=== PATIENT | male | born 1950 | race Caucasian/White ===

== ENCOUNTER 2016-10-29 15:14 | Emergency (ER) | payer MEDICARE ==
[2016-10-29 15:30] VITALS: BP 133/94
--- NOTE | 2016-10-29 16:49 | UC ---
Skin Complaint HPI - HPI Summary HPI Summary: This is a 66 yo gentleman with OA of his L hip who presents with c/o rash. He reports that he used a kinesiology tape on his L hip yesterday and was awoken in the middle of the night with a painful rash. He is unsure if the lesion that developed is over the exact area that the tape was in place. He went cycling yesterday and today with the tape in place. He denies a h/o similar reaction. No associated fever or generalized illness. - History of Current Complaint Chief Complaint: UCSkin Stated Complaint: RASH - Allergy/Home Medications Allergies/Adverse Reactions: Allergies Allergy/AdvReac Type Severity Reaction Status Date / Time Apple Allergy Unknown Verified 10/18/14 10:48 Reaction Details Review of Systems Constitutional: Negative Skin: Rash Eyes: Negative ENT: Negative Respiratory: Negative Cardiovascular: Negative Gastrointestinal: Negative Genitourinary: Negative Motor: Negative Neurovascular: Negative Musculoskeletal: Negative Neurological: Negative Psychological: Negative All Other Systems Reviewed And Are Negative: Yes PMH/Surg Hx/FS Hx/Imm Hx Previously Healthy: No - L hip OA - Surgical History Surgical History: Yes Surgery Procedure, Year, and Place: RT HIP REPLACEMENT - Family History Known Family History: Positive: None - Social History Alcohol Use: Weekly Alcohol Amount: 2 GLASSES WEEKLY Substance Use Type: None Smoking Status (MU): Never Smoked Tobacco Physical Exam Triage Information Reviewed: Yes Vital Signs: Initial Vital Signs Temp 98 F 10/29/16 15:27 Pulse 81 10/29/16 15:27 Resp 20 10/29/16 15:27 BP 133/94 10/29/16 15:27 Pulse Ox 99 10/29/16 15:27 Vital Signs Reviewed: Yes Respiratory: Positive: Chest non-tender, Lungs clear Cardiovascular: Positive: RRR, No Murmur Skin: Positive: Other - focal lesion just inferior to the GT, no surrounding erythema, superficial layer of skin appears to be sheared off Course/Dx - Course Course Of Treatment: This is a 66 yo gentleman presenting with c/o painful rash. It appears to be a shear injury, perhaps from the tape. Recommended to keep the area covered to prevent infection and inspect daily to look for new lesions or signs of infection - Diagnoses Provider Diagnoses: 1. Rash Discharge - Discharge Plan Condition: Stable Disposition: HOME Patient Education Materials: Acute Rash (ED) Referrals: David Hammer MD [Primary Care Provider] - If Needed Additional Instructions: Activity: As tolerated Instructions: 1. Keep the area covered to prevent infection, but inspect daily 2. Follow up if there is increased pain, redness or swelling or if new lesions develop
== END 2016-10-29 16:45 | disposition home or self-care (01) ==
LOC: UCEAST 15:14
DX: R21 Rash and other nonspecific skin eruption (principal)
CPT/HCPCS: 99211; G0463

== ENCOUNTER 2017-02-02 07:51 | Inpatient (IN) | payer MEDICARE ==
--- NOTE | 2017-01-23 19:54 | HP ---
PREOPERATIVE HISTORY AND PHYSICAL: DATE OF ADMISSION: 02/02/17 PROVIDER: Dr. Imer Burns * (DICTATED BY TRUDY SPARKS) CHIEF COMPLAINT: Left hip pain. HISTORY OF PRESENT ILLNESS: Mr. Oviedo is a 66-year-old male, who has had ongoing pain in the left hip. He underwent a right total hip arthroplasty in September of 2010 and is doing very well with that. He is interested in surgical intervention for the pain in the left hip at this point. He takes pain medication at night to help him sleep. He also has increased pain when going from sitting to standing position. He has failed conservative treatment at this point. PAST MEDICAL HISTORY: Significant BPH, bradycardia, obstructive sleep apnea. PAST SURGICAL HISTORY: Right total hip replacement in 2010, right knee arthroscopy and partial meniscectomy in 2015, left carpal tunnel release in 2014. He reports no complications with anesthesia with these procedures. CURRENT MEDICATIONS: 1. Mobic 15 mg 1 p.o. q. day. 2. Avodart 0.5 mg 1 p.o. q. day. 3. Minocycline 50 mg 1 p.o. q. day. 4. Tamsulosin HCl 0.4 mg 1 p.o. q. day. 5. Viagra 50 mg 1 by mouth q. day as needed. 6. Ibuprofen 200 mg 2 tabs p.o. b.i.d. as needed. 7. CPAP for sleeping. ALLERGIES: No known drug allergies. FAMILY HISTORY: Noncontributory. SOCIAL HISTORY: He lives with his . He is a retired. He does not use tobacco. He drinks 1 to 2 alcoholic beverages per week. He exercises regularly. REVIEW OF SYSTEMS: Constitutional: Negative for recent hospitalizations, fevers, chills, night sweats, or unexplained weight loss. Head: Negative for headaches, lightheadedness, or balance problems. Cardiovascular: Negative for chest or arm pain with exertion, history of heart attack, heart murmur, heart palpitations, high blood pressure, embolism, or deep vein thrombosis. Respiratory: Negative for chronic cough, shortness of breath with exertion, asthma, or COPD. Gastrointestinal: Negative for heartburn, nausea, vomiting, diarrhea, constipation, or GERD. Genitourinary: Positive for nighttime urination, urinary frequency, positive for BPH, negative for urinary tract infections or kidney problems. Musculoskeletal: Negative for chronic back pain or recent fractures. Skin: Negative for rashes, lesions, lumps, or sores. Neurologic: Negative for seizure, stroke, epilepsy, depression or anxiety. Endocrine: Negative for diabetes or thyroid problems. Hematology: Negative for easy bleeding, bruising, or anemia. PHYSICAL EXAMINATION GENERAL: He is a well-developed, well-nourished male, in no acute distress at rest. He is alert and oriented x3 with appropriate mood and affect. VITAL SIGNS: The patient is 5 feet 10 inches, 250 pounds, blood pressure 140/84 , pulse 76. HEENT: Normocephalic, atraumatic. Hearing and vision are grossly intact. NECK: His trachea is midline. RESPIRATORY: Lungs are clear to auscultation bilaterally. No wheezes, rales, or rhonchi. CARDIOVASCULAR: Regular rate and rhythm. No murmurs, rubs, or gallops. Normal S1 and S2. ABDOMEN: Soft, nondistended, nontender, normal bowel sounds. EXTREMITIES: Exam of the hip, skin is intact without abrasions or open wounds. There is no edema or ecchymosis or gross deformities. He has significantly resisted range of motion of the hip and pain with end range of motion. He has good strength in all directions. He has sensation to light touch intact distally. He has a normal vascular exam. DIAGNOSTIC STUDIES: Imaging: Bilateral hip x-rays showed good right total hip arthroplasty and [id number] osteoarthritis of the left hip. IMPRESSION: Left hip osteoarthritis. PLAN: The patient is to undergo left total hip arthroplasty by Dr. Burns on 02/02/17. The risks, benefits, and postoperative course were discussed with the patient at length and he would like to proceed. A prescription for Percocet was sent to his pharmacy for postoperative pain and Coumadin was also sent for DVT prophylaxis. We will follow up with the patient in the postoperative phase. TRUDY SPARKS [id number]/CPS #: [id number] MTDD
[~2017-02-02 07:51] MED LIST: Buffered Lidocaine 0.9% SYRIN* 5 ML/SYR SYRINGE INTRADERM ONE; Bupivacaine 0.5% SDV PF* 30 ML VIAL ONE; Dexamethasone IV* 4 MG/ML 1 ML (4 MG) ONE; Famotidine IV* 10 MG/ML 2 ML (20 mg) IV ONE; KETAMINE HCL* 50 MG/ML 10 ML VIAL ONE; Ketorolac INJ* 30 MG/ML 1 ML VIAL ONE; Lidocaine 2% PF * 5 ML VIAL ONE; Metoclopramide TAB* 10 MG PO ONE; Midazolam* 1 MG/ML 5 ML VIAL (5 MG) ONE; Morphine PF AMP (0.5MG/ML)* 5 MG/10 ML AMP ONE; Ondansetron INJ* 2 MG/ML VIAL ONE; Propofol* 10 MG/ML 20 ML BTL IV PUSH ONE; Propofol* 500 MG/50 ML BTL ONE; fentaNYL* 50 MCG/ML 2 ML VIAL (100 MCG VIAL) ONE
[2017-02-02] MEDS ORDERED: ceFAZolin 2 GM PREMIX (*) 2 GM/50 ML BAG IVPB ONE (07:58)
[2017-02-02] MEDS ORDERED: Famotidine IV* 10 MG/ML 2 ML (20 mg) ONE (07:58)
[2017-02-02] MEDS ORDERED: Buffered Lidocaine 0.9% SYRIN* 5 ML/SYR SYRINGE ONE (07:58)
[2017-02-02] MEDS ORDERED: Metoclopramide TAB* 10 MG ONE (08:15)
[2017-02-02] MEDS ORDERED: Tamsulosin CAP* 0.4 MG ONE (08:35)
[2017-02-02] MEDS ORDERED: Finasteride TAB* 5 MG PO ONE (09:00)
[2017-02-02] MEDS ORDERED: Tamsulosin CAP* 0.4 MG PO ONE (09:00)
[2017-02-02] MEDS ORDERED: Midazolam* 1 MG/ML 2 ML VIAL (2 MG) ONE (09:19)
[2017-02-02] MEDS ORDERED: Lidocaine 2% PF * 5 ML VIAL ONE (09:20)
[2017-02-02] MEDS ORDERED: diPHENhydraMINE IV* 50 MG/ML 1 ml VIAL (BENADRYL) IV PRN ×2 (10:44→10:48)
[2017-02-02] MEDS ORDERED: Ondansetron INJ* 2 MG/ML VIAL IV PRN ×2 (10:44→10:48)
[2017-02-02] MEDS ORDERED: fentaNYL* 50 MCG/ML 2 ML VIAL (100 MCG VIAL) IV PRN (10:44)
[2017-02-02] MEDS ORDERED: oxyCODONE/Acetamin 5/325 MG* TAB PO PRN ×2 (10:48)
[2017-02-02] MEDS ORDERED: Naloxone* 0.4 MG/ML 1 ML VIAL IV PRN (10:48)
[2017-02-02] MEDS ORDERED: Ketorolac INJ* 30 MG/ML 1 ML VIAL IV PRN (10:48)
[2017-02-02] MEDS ORDERED: diPHENhydraMINE IV* 50 MG/ML 1 ml VIAL (BENADRYL) ONE (11:00)
[2017-02-02] MEDS ORDERED: Polyethylene Glycol 3350* 17 GM PACKET PO PRN (11:44)
[2017-02-02] MEDS ORDERED: Acetaminophen TAB* 325 MG PO PRN (11:44)
[2017-02-02] MEDS ORDERED: Bisacodyl SUPP* 10 MG SUPP PR PRN (11:44)
--- NOTE | 2017-02-02 12:53 | RAD ---
Indication: Left total hip arthroplasty. Single low AP view of the pelvis demonstrates bilateral hip replacements. No fracture is noted. No other bone or joint abnormality is identified. IMPRESSION: No fracture of the pelvis is noted.
[2017-02-02] MEDS ORDERED: Heparin VIAL(*) 5000 UNITS/ML VIAL (FIVE THOUSAND) SUBCUT SCH (14:00)
[2017-02-02] MEDS: D5W 1/2 NS 1000 ML BAG* 1,000 ML IV SCH (15:30)
[2017-02-02] MEDS ORDERED: Warfarin TAB(*) 10 MG PO ONE (17:00)
[2017-02-02] MEDS: ceFAZolin 1 GM VIAL(*) 1 GM in NS 0.9% 50 ML* 50 ML IVPB SCH (17:43)
[2017-02-02] MEDS ORDERED: diPHENhydraMINE IV* 50 MG/ML 1 ml VIAL (BENADRYL) IV ONE (17:55)
[2017-02-02] MEDS ORDERED: Nalbuphine* 20 MG/ML 1 ML VIAL IV PRN (19:00)
[2017-02-02] MEDS: Docusate CAP* 100 MG PO SCH (21:30)
[2017-02-02] MEDS: Ferrous Sulfate TAB* 325 MG PO SCH (21:30)
[2017-02-02] MEDS: Tamsulosin CAP* 0.4 MG PO SCH (21:31)
[2017-02-02] MEDS: Magnesium Hydroxide LIQ* 30 ML UDC PO SCH (21:31)
[2017-02-03] MEDS: D5W 1/2 NS 1000 ML BAG* 1,000 ML IV SCH (01:38)
[2017-02-03] MEDS: ceFAZolin 1 GM VIAL(*) 1 GM in NS 0.9% 50 ML* 50 ML IVPB SCH ×2 (01:39→10:29)
--- NOTE | 2017-02-03 02:28 | OP ---
OPERATIVE REPORT: DATE OF OPERATION: 02/02/17 - Inpatient, room [facility]-02 DATE OF : 50 ATTENDING SURGEON: Imer Burns MD SECRET SERVICE AGENT: TRUDY Denton ANESTHESIOLOGIST: Molina Marques MD ANESTHESIA: Spinal sedation. PRE-OP DIAGNOSIS: Osteoarthritis, left hip. POST-OP DIAGNOSIS: Osteoarthritis, left hip. OPERATIVE PROCEDURE: Left total hip arthroplasty. ESTIMATED BLOOD LOSS: 250 cc. COMPLICATIONS: None. HARDWARE: Bobbi Continuum cup 54 mm with 2 screws, 15-degree elevated liner, 13.5 mL taper, +0 36 mm head. SUMMARY: Mr. Oviedo is a 66-year-old male who has been having more troubles now with his left hip. He had undergone a right total hip arthroplasty in 2010 and had done quite well with that. His left hip had only been a little bit bothersome at that point, but had slowly gotten worse over the years. He reports this is a point where he needs to have his left hip replaced. X-ray was completely cyqz-[id number] with significant osteoarthritis and bony changes. I discussed with him that a total hip arthroplasty should work well to decrease his pain and improve his function. Risks of surgery such as infection, scar formation, stiffness, DVT, pulmonary embolism, hardware failure, instability, and leg length discrepancy were some of the risks discussed. He had been declared medically optimized and wished to proceed. DESCRIPTION OF PROCEDURE: The patient was brought to the OR and spinal anesthesia was introduced. Bo catheter was placed and that went smoothly. He was then rolled into the right lateral decubitus position and an axillary role was placed. The left hip area was prepped and then draped. Incision was made centered about the greater trochanter extending proximally and distally for about 8 cm. Incision was carried down through the skin and subcutaneous fat , fascia was exposed and sharply incised. Marichuy Kc was present from positioning to draping to the approach, placement of the hardware as well as closure and the case could not have been done without an mail handler assistant. We had quite a bit of muscle under the fascia and electrocautery was used to ligate some of the small bleeders that were present. He also oozed quite a bit. With blunt dissection, I was able to come under the gluteus medius, gluteus minimus and with coming upwards, nice exposure of the piriformis and short external rotators were obtained. Taking them down using electrocautery, I was able to come to neck and nicely exposed the neck of the femur. With trying to dislocate him; however, he did not come out easily. I had to take a little more capsule over the top superiorly and then a little bit more inferiorly in order that I could release him and then I had troubles tearing his ligamentum teres. Eventually though, hip was dislocated and cutting guide was placed. Femoral neck was marked and a nice femoral neck cut was taken. Femur was then shifted anteriorly and good exposure of the acetabulum was obtained. Arian was used to hang out to some of the frayed labrum, which was present and labrum was sharply excised. He had much more of an osteophyte present, then what the x -ray showed, but initially I had thought that this would be alright, but eventually I did take this down using osteotome and rongeur. Beginning with a 48 reamer, he was first deepened a little bit and then progressively expanded. He had a 54 cup on the opposite side and a 53 had a nice hmvt-ol-frbr bite and a 54 cup was then impacted into place. Nice bite was obtained. Two screws were placed and good bite was obtained with each of the screws as well. Trial liner was placed and attention was turned to the femur. Box osteotome was used to open the femoral canal and the canal finder was easily passed. Five broach was first used to lateralize a little bit and then progressively broached the femur. With the 11, I felt I had a little bit more resistance, but even the 12.5 sat down quite nicely. He had a 12.5 on the right side. A 13.5 had an even more solid fit and I stayed at the 13.5. He was trailed with a standard head and neck and his leg length appeared to be equal. He had good stability, but with internal rotation, he started to lever out at about 30 to 45 degrees. Trial instrumentation was removed and elevated. Posterior liner was placed. 13.5 stem was also impacted into place and he was again trialed with a 0 head. With the elevator liner, he had much better stability and only would lever out at about 60 to 75 degrees of internal rotation. Considering his leg length appeared to be equal, +0 36 mm head was then impacted into place. The hip was copiously pulse lavaged. Capsule and short external rotators were repaired together to the posterior aspect of the greater trochanter. Hip was again copiously pulse lavaged. Fascia was repaired using interrupted #1 Vicryl sutures and the subcutaneous sutures were also pulse lavaged. Subcutaneous tissue were approximated with 2-0 Vicryl, skin was closed using kwaku. Sterile dressing and an abduction pillow were applied in the OR. The patient was then rolled on to the hospital bed and was stable on transfer to the recovery room. [id number]/CPS #: [id number] MTDD
[2017-02-03] MEDS ORDERED: Morphine INJ* 10 MG/ML 1 ML CARPUJECT IV PRN (02:48)
[2017-02-03] MEDS ORDERED: Ondansetron TAB* 4 MG PO PRN (02:48)
[2017-02-03] MEDS ORDERED: diPHENhydraMINE IV* 50 MG/ML 1 ml VIAL (BENADRYL) IV PRN (02:48)
[2017-02-03] MEDS ORDERED: oxyCODONE TAB* 5 MG TAB PO PRN (02:48)
[2017-02-03] MEDS ORDERED: Ondansetron INJ* 2 MG/ML VIAL IV PRN (02:48)
[2017-02-03] MEDS: oxyCODONE/Acetamin 5/325 MG* TAB PO PRN ×2 (03:50→19:45)
[2017-02-03 05:04] LABS: Hematocrit 29 % (42-52); Hemoglobin 9.7 g/dl (14.0-18.0)
[2017-02-03 05:21] LABS: Calcium 8.6 mg/dL (8.6-10.3); EGFR Non-African American 85.5 (>60)
[2017-02-03] MEDS: CMC:Minocycline (NF) 50 MG CAP PO SCH (09:03)
[2017-02-03] MEDS: Tamsulosin CAP* 0.4 MG PO SCH ×2 (09:03→20:04)
[2017-02-03] MEDS: Finasteride TAB* 5 MG PO SCH (09:03)
[2017-02-03] MEDS: Magnesium Hydroxide LIQ* 30 ML UDC PO SCH ×2 (09:03→20:04)
[2017-02-03] MEDS: Ferrous Sulfate TAB* 325 MG PO SCH ×2 (09:03→20:04)
[2017-02-03] MEDS: Vitamin THERAPEUTIC TAB PO SCH (09:04)
[2017-02-03] MEDS: Docusate CAP* 100 MG PO SCH ×2 (09:04→20:04)
[2017-02-03] MEDS: Heparin VIAL(*) 5000 UNITS/ML VIAL (FIVE THOUSAND) SUBCUT SCH ×2 (12:44→19:45)
--- NOTE | 2017-02-03 12:57 | PN ---
Progress Note - Progress Note Date of Service: 02/03/17 SOAP: Subjective: Pt comfortably lying in bed. No complaint of pain. Denies CP, SOB, numbness or tingling. Objective: Dressing was saturated and changed. Incision C/D/I. Calves soft, nontender. 2+ DP pulses. Sensation intact to light touch. Vital Signs: Temp Pulse Resp BP Pulse Ox 97.8 F 59 20 110/59 98 02/03/17 07:44 02/03/17 07:44 02/03/17 08:00 02/03/17 07:44 02/03/17 08:00 Laboratory Last Values Hgb 9.7 g/dl (14.0-18.0) L 02/03/17 04:47 Hct 29 % (42-52) L 02/03/17 04:47 INR (Anticoag Therapy) 1.10 (0.89-1.11) 02/03/17 04:47 Sodium 135 mmol/L (133-145) 02/03/17 04:47 Potassium 4.0 mmol/L (3.5-5.0) 02/03/17 04:47 Chloride 103 mmol/L (101-111) 02/03/17 04:47 Carbon Dioxide 29 mmol/L (22-32) 02/03/17 04:47 Anion Gap 3 mmol/L (2-11) 02/03/17 04:47 BUN 16 mg/dL (6-24) 02/03/17 04:47 Creatinine 0.89 mg/dL (0.67-1.17) 02/03/17 04:47 Est GFR ( Amer) 110.0 (>60) 02/03/17 04:47 Est GFR (Non-Af Amer) 85.5 (>60) 02/03/17 04:47 BUN/Creatinine Ratio 18.0 (8-20) 02/03/17 04:47 Glucose 147 mg/dL (70-100) H 02/03/17 04:47 Calcium 8.6 mg/dL (8.6-10.3) 02/03/17 04:47 Assessment: 66 yo male s/p Left CLAUDIA POD #1 Plan: OOB PT/OT WBAT LLE Pain Control DVT prophylaxis - Coumdin 8 mg tonight
[2017-02-03] MEDS ORDERED: Warfarin TAB(*) 4 MG PO ONE (17:00)
[2017-02-03] MEDS: Aspirin TAB* 325 MG PO SCH (18:20)
[2017-02-04] MEDS: oxyCODONE/Acetamin 5/325 MG* TAB PO PRN ×2 (00:19→08:25)
[2017-02-04] MEDS: Heparin VIAL(*) 5000 UNITS/ML VIAL (FIVE THOUSAND) SUBCUT SCH ×2 (03:40→12:22)
[2017-02-04 05:41] LABS: Hematocrit 27 % (42-52); Hemoglobin 9.1 g/dl (14.0-18.0)
[2017-02-04] MEDS: Magnesium Hydroxide LIQ* 30 ML UDC PO SCH (08:25)
[2017-02-04] MEDS: Docusate CAP* 100 MG PO SCH (08:26)
[2017-02-04] MEDS: Aspirin TAB* 325 MG PO SCH (08:26)
[2017-02-04] MEDS: Finasteride TAB* 5 MG PO SCH (08:27)
[2017-02-04] MEDS: Ferrous Sulfate TAB* 325 MG PO SCH (08:28)
[2017-02-04] MEDS: CMC:Minocycline (NF) 50 MG CAP PO SCH (08:28)
[2017-02-04] MEDS: Vitamin THERAPEUTIC TAB PO SCH (08:28)
[2017-02-04] MEDS: Tamsulosin CAP* 0.4 MG PO SCH (08:28)
--- NOTE | 2017-02-04 08:36 | PN ---
Progress Note - Progress Note Date of Service: 02/04/17 SOAP: Subjective: [Pt reports good night, would like to go home today] Objective: [Pt sitting in chair, wasable to stand for his dressing change. VSS: afebrile Labs: H/H: 9.05/09, INR: 1.7] Left hip: Wound benign, no drainage, no erythema, but good amount of ecchymosis extending from superior to the wound to inferior. Also swollen in this area. Assessment: [Stable] Plan: [Continue OOB/PT, DVT prophalaxis, care He has expressed the desire to avoid coumadin and I had told him if he moved well, we could use aspirin instead. He did great with PT and is moving well, so I started him on ASA yesterday. Likely d/c later today.]
[2017-02-04 12:22] VITALS: BP 131/72
--- NOTE | 2017-02-05 00:37 | DS ---
Amended report to enter cosigning physician on report. DISCHARGE SUMMARY: DATE OF ADMISSION: 02/02/17 DATE OF DISCHARGE: 02/04/17 ATTENDING PHYSICIAN: Imer Burns MD* (dictated by TRUDY Strong). ADMISSION DIAGNOSIS: Osteoarthritis, left hip. DISCHARGE DIAGNOSIS: Osteoarthritis, left hip. SURGERY PERFORMED: Left total hip arthroplasty. HOSPITAL COURSE: The patient is a 66-year-old male, who underwent right total hip arthroplasty in 2010 and did very well. He has had increased pain in the left hip and worsened over the last several months and decided to proceed with total hip arthroplasty. He failed conservative management. His x-rays revealed [id number] arthritis. He was taken to the operating room under the care of Dr. Imer Burns on the date of 02/02/17 for the aforementioned procedure. He tolerated the procedure well and left the operating room in stable condition. Postoperatively, he progressed very well with the physical therapy and occupational therapy goals, bearing weight as tolerated on the left lower extremity. He was stable medically and orthopedically for discharge to home on the date of 02/04/17. CONDITION ON DISCHARGE: Temperature 98, pulse 79, respiratory rate 17, O2 sat is 96% on room air, blood pressure 124/68. His hemoglobin is 9.1, hematocrit 27. His wound is healing without evidence of infection. His calf is soft and nontender. His neurovascular status is intact distally. PLAN: Discharged to home bearing weight as tolerated on the left lower extremity. He will use aspirin 325 mg p.o. daily for DVT prophylaxis. He may shower on 02/05/17 with a light dressing to cover the incision as needed. He will follow up in the office as scheduled with Dr. Burns in mid February. Home nursing services will remove kwaku at about 10 to 14 days. If there are any concerns with increased pain, noted redness or drainage from his incision, calf pain or swelling, fever or chills, the office will be contacted prior to a scheduled appointment in February with Dr. Burns. TRUDY STRONG [id number]/[facility] #: [id number] MTDD
== END 2017-02-04 14:10 | disposition home health service (06) | DRG 470 ==
LOC: AA 07:51 → SSU 14:36
PROVIDERS: ADMIT Orthopaedic Surgery; ATTEND Orthopaedic Surgery
PROC: 0SRB02A Replacement of Left Hip Joint with Metal on Polyethylene Synthetic Substitute, Uncemented, Open Approach (ICD-10-PCS; principal; 2017-02-02 09:15)
DX: M16.12 Unilateral primary osteoarthritis, left hip (principal); I27.20 Pulmonary hypertension, unspecified; G47.33 Obstructive sleep apnea (adult) (pediatric); N40.0 Benign prostatic hyperplasia without lower urinary tract symptoms; Z96.641 Presence of right artificial hip joint; J45.909 Unspecified asthma, uncomplicated; I10 Essential (primary) hypertension; Z72.89 Other problems related to lifestyle; Z79.82 Long term (current) use of aspirin
CPT/HCPCS: 36415; 62323; 72170; 80048; 85014; 85018; 85610; 88304; 88311; A9270-GY; C1713; C1776; J0690; J1100; J1200; J1644; J1885; J2250; J2300; J2405; J2704; J3010

== ENCOUNTER 2017-03-01 00:29 | Emergency (ER) | payer MEDICARE ==
[2017-03-01] MEDS ORDERED: Magnesium CITRATE* 300 ML BTL PO ONE (02:21)
--- NOTE | 2017-03-01 02:23 | ED ---
Elieser Kent Alfonso, scribed for David Mabry MD on 03/01/17 at 0203 . GI/ HPI - HPI Summary HPI Summary: This patient is a 66 year old M presenting to [facility] accompanied by female with a chief complaint of constipation and urinary retention since 2300 yesterday. The patient rates the pain 5/10 in severity. Symptoms aggravated and alleviated by nothing. Patient reports back spasms. Patient denies dysuria. He is taking stool softeners and drinking prune juice. - History of Current Complaint Chief Complaint: EDUrogenitalProblems Stated Complaint: CONSTIPATION/DIFF URINATING Hx Obtained From: Patient Onset/Duration: Started Hours Ago, Still Present Timing: Constant Pain Intensity: 5 - /10 Associated Signs and Symptoms: Positive: Other: - back spasms, constipation, and urinary retention. Negative: Dysuria Aggravating Factor(s): Nothing Alleviating Factor(s): Nothing - Additional Pertinent History Primary Care Physician: [id number] - Allergy/Home Medications Allergies/Adverse Reactions: Allergies Allergy/AdvReac Type Severity Reaction Status Date / Time Apple Allergy Severe severe Verified 02/11/17 05:29 diarrhea PMH/Surg Hx/FS Hx/Imm Hx Endocrine/Hematology History: Denies: Hx Diabetes Cardiovascular History: Denies: Hx Congestive Heart Failure, Hx Hypertension, Hx Pacemaker/ICD Respiratory History: Reports: Hx Sleep Apnea Denies: Hx Asthma GI History: Reports: Other GI Disorders - hemorrhoids History: Reports: Other Problems/Disorders - BPH Denies: Hx Renal Disease Musculoskeletal History: Reports: Hx Arthritis - HIPS, Other Musculoskeletal History - right knee Sensory History: Reports: Hx Contacts or Glasses - GLASSES Denies: Hx Hearing Aid Opthamlomology History: Reports: Hx Contacts or Glasses - GLASSES Psychiatric History: Denies: Hx Panic Disorder - Surgical History Surgery Procedure, Year, and Place: RT HIP REPLACEMENT 2010. Left wrist carpal tunnel 2015. right knee meniscus repair 2013 Hx Anesthesia Reactions: No Infectious Disease History: No Infectious Disease History: Denies: Hx Clostridium Difficile, Hx Hepatitis, Hx Human Immunodeficiency Virus (HIV), Hx of Known/Suspected MRSA, Hx Shingles, Hx Tuberculosis, Hx Known/ Suspected VRE, Hx Known/Suspected VRSA, History Other Infectious Disease, Traveled Outside the [place] in Last 30 Days - Family History Known Family History: Positive: Hypertension, Diabetes - Social History Alcohol Use: Weekly Alcohol Amount: 2 GLASSES WEEKLY Hx Substance Use: No Substance Use Type: Reports: None Hx Tobacco Use: No Smoking Status (MU): Never Smoked Tobacco Review of Systems Negative: Fever Positive: Other - Constipation Positive: dysuria, other - retention Positive: Other - Back spasms All Other Systems Reviewed And Are Negative: Yes Physical Exam - Summary Physical Exam Summary: Appearance: Well-appearing, Well-nourished Skin: Warm Eyes: Normal ENT: Normal Neck: Supple, nontender Respiratory: Clear to auscultation Cardiovascular: Normal Abdomen: Soft, nontender : Urinary catheter in place draining clear yellow urine. Bowel: Present Musculoskeletal: Strength/ROM Intact Neurological: Normal, A&Ox3 Psychiatric: Normal Triage Information Reviewed: Yes Vital Signs On Initial Exam: Initial Vitals Temp Pulse Resp BP Pulse Ox 96.8 F 73 14 151/89 98 03/01/17 00:32 03/01/17 00:32 03/01/17 00:32 03/01/17 00:32 03/01/17 00:32 Vital Signs Reviewed: Yes Diagnostics - Vital Signs Vital Signs Temp Pulse Resp BP Pulse Ox 03/01/17 00:32 96.8 F 73 14 151/89 98 - Laboratory Lab Statement: Any lab studies that have been ordered have been reviewed, and results considered in the medical decision making process. GIGU Course/Dx - Course Assessment/Plan: much improved after marrero placement, clear copious urine, immedaite relief, pt instructed to fu with urologist for removal and return to ed if hes not able to see one. agrees to and understnads dc instructions. - Diagnoses Provider Diagnoses: Urinary retention Discharge - Discharge Plan Condition: Improved Disposition: HOME Prescriptions: Magnesium CITRATE* [Citrate of Magnesia*] 300 ml PO ONCE #1 btl Patient Education Materials: Constipation (ED), Marrero Catheter Placement and Care (ED) Referrals: David Hammer MD [Primary Care Provider] - Tone Montero MD [Medical Doctor] - Additional Instructions: 1. PLEASE MAKE AN APPOINTMENT FIRST THING IN THE MORNING TO BE SEEN BY YOUR UROLOGIST WITHIN 1-3 DAYS 2. PLEASE RETURN IMMEDIATELY TO THE ER IF YOU HAVE ANY WORSENING OR CONCERNING SYMPTOMS OR IF YOU CANNOT GET IN TOUCH WITH YOUR UROLOGIST 3. PLEASE DO NOT TRY TO REMOVE MARRERO ON YOUR OWN The documentation as recorded by the scribElieser adams Alfonso accurately reflects the service I personally performed and the decisions made by me, David Mabry MD.
[2017-03-01 02:34] VITALS: BP 122/76
== END 2017-03-01 02:52 | disposition home or self-care (01) ==
LOC: ED 00:29
DX: R33.9 Retention of urine, unspecified (principal); M62.830 Muscle spasm of back; K59.00 Constipation, unspecified
CPT/HCPCS: 99282; A9270-GY

== ENCOUNTER 2017-10-05 10:27 | Emergency (ER) | payer MEDICARE ==
[2017-10-05 11:08] VITALS: BP 133/83
--- NOTE | 2017-10-05 11:43 | UC ---
Throat Pain/Nasal Lenny HPI - HPI Summary HPI Summary: Sore throat for one day, some cough no fever, believes he may have been exposed to strep last week - History of Current Complaint Chief Complaint: UCGeneralIllness Stated Complaint: THROAT COMPLAINT Time Seen by Provider: 10/05/17 11:12 Hx Obtained From: Patient Onset/Duration: Sudden Onset Pain Intensity: 3 Pain Scale Used: 0-10 Numeric Cough: Nonproductive Associated Signs & Symptoms: Positive: Negative - Allergies/Home Medications Allergies/Adverse Reactions: Allergies Allergy/AdvReac Type Severity Reaction Status Date / Time apple Allergy Diarrhea Verified 10/05/17 10:59 Home Medications: Home Medications Aspirin 81 mg CHEW TAB* 81 mg PO DAILY 10/05/17 [History Confirmed 10/05/17] Ibuprofen TAB* [Motrin TAB* 400 MG] 400 mg PO Q6H PRN 10/05/17 [History Confirmed 10/05/17] PMH/Surg Hx/FS Hx/Imm Hx GI/ History: Other Other GI/ History: BPH - Surgical History Surgical History: Yes Surgery Procedure, Year, and Place: RT HIP REPLACEMENT 2010. Left wrist carpal tunnel 2014. right knee meniscus repair 2013. L hip replacement 2017 - Family History Known Family History: Positive: None, Hypertension, Diabetes - Social History Occupation: Works From/At Home Lives: With Family Alcohol Use: Weekly Alcohol Amount: 3 beers WEEKLY Substance Use Type: None Smoking Status (MU): Never Smoked Tobacco - Immunization History Most Recent Influenza Vaccination: 2016 Most Recent Pneumonia Vaccination: 2017 Review of Systems Constitutional: Negative Skin: Negative Eyes: Negative ENT: Sore Throat, Nasal Discharge Respiratory: Cough Cardiovascular: Negative Gastrointestinal: Negative Genitourinary: Negative Motor: Negative Neurovascular: Negative Musculoskeletal: Negative Neurological: Negative Psychological: Negative Is Patient Immunocompromised?: No All Other Systems Reviewed And Are Negative: Yes Physical Exam Triage Information Reviewed: Yes Appearance: Well-Appearing, No Pain Distress, Well-Nourished Vital Signs: Initial Vital Signs Temp 97.8 F 10/05/17 11:03 Pulse 55 10/05/17 11:03 Resp 16 10/05/17 11:03 BP 133/83 10/05/17 11:03 Pulse Ox 99 10/05/17 11:03 Vital Signs Reviewed: Yes Eye Exam: Normal Eyes: Positive: Conjunctiva Clear ENT Exam: Normal ENT: Positive: Normal ENT inspection, Hearing grossly normal, Pharynx normal, Uvula midline. Negative: Nasal congestion, Nasal drainage, Tonsillar exudate, Trismus, Muffled voice, Hoarse voice Dental Exam: Normal Neck exam: Normal Neck: Positive: Supple, Nontender, Enlarged Nodes @ - anterior cervical mildly enlarged and tender Respiratory Exam: Normal Respiratory: Positive: Chest non-tender, Lungs clear, Normal breath sounds, No respiratory distress, No accessory muscle use Cardiovascular Exam: Normal Cardiovascular: Positive: RRR, No Murmur, Pulses Normal, Brisk Capillary Refill Musculoskeletal Exam: Normal Musculoskeletal: Positive: Strength Intact, ROM Intact, No Edema Neurological Exam: Normal Neurological: Positive: Alert, Muscle Tone Normal Psychological Exam: Normal Skin Exam: Normal Diagnostics - Laboratory Diagnostic Studies Completed/Ordered: RST (-) Throat Pain/Nasal Course/Dx - Course Assessment/Plan: tylenol, ibuprofen, increase fluids, throat sprays Chris. follow with pcp prn - Differential Dx/Diagnosis Provider Diagnoses: pharyngitis Discharge - Sign-Out/Discharge Documenting (check all that apply): Discharge/Admit/Transfer - Discharge Plan Condition: Stable Disposition: HOME Patient Education Materials: Benzocaine/Menthol (By mouth), Pharyngitis (ED) Referrals: David Hammer MD [Primary Care Provider] - If Needed - Billing Disposition and Condition Condition: STABLE Disposition: Home
== END 2017-10-05 11:45 | disposition home or self-care (01) ==
LOC: UCEAST 10:27
DX: J02.9 Acute pharyngitis, unspecified (principal); Z91.018 Allergy to other foods; Z96.643 Presence of artificial hip joint, bilateral
CPT/HCPCS: 87651; 99212; G0463